=== PATIENT | female | born 1955 | race Caucasian/White ===

== ENCOUNTER 2017-06-20 17:51 | Emergency (ER) ==
[2017-06-20 17:57] VITALS: BP 124/66; BMI 27.8
--- NOTE | 2017-06-20 18:13 | ED.PDOC ---
General <ARABELLA FLANNERY - Last Filed: 06/20/17 19:32> Stated Complaint: LOWER ABDOMINAL PAIN Time Seen by Physician: 18:00 (SEEN WITH PRASANNA AND AT ALL TIMES ) Mode of Arrival: Walk-In Information Source: Patient, Family Exam Limitations: No limitations Nursing and Triage Documentation Reviewed and Agree: Yes Reviewed sepsis parameters & appropriate labs ordered?: Yes System Inflammatory Response Syndrome: Not Applicable System Inflammatory Response Syndrome: Not Applicable <LUIS ALFREDO MCGRAHT - Last Filed: 06/22/17 18:06> ED Provider: Dr. LUIS ALFREDO MCGRATH Chief Complaint: Abdominal Pain Primary Care Provider: PAYAL GTZ Sepsis Protocol: For patient's 13 years and over: Temp is 96.8 and below OR 101 and greater Pulse >90 BPM Resp >20/minute Acutely Altered Mental Status Are patient's symptoms suggestive of a new infection, such as: -Pneumonia -Skin, Soft Tissue -Endocarditis -UTI -Bone, Joint Infection -Implantable Device -Acute Abdominal Infection -Wound Infection -Meningitis -Blood Stream Catheter Infection -Unknown GI Complaint Exam - Abdominal Pain Complaint/Exam Onset: Gradual Duration: 2 DAYS Symptoms Are: Still present Timing: Constant Initial Severity: Moderate Current Severity: Moderate Location of Pain: RLQ, LLQ, Suprapubic Character: Reports: Aching Aggravating: Reports: None (1 BOWEL MOVEMNET WAS SOLID AND HAD SOME MINIMAL BLOOD HISTORY OF HEMORROIDS REPORTED BY PT) Alleviating: Reports: None Associated Signs and Symptoms: Reports: Decreased appetite. Denies: Diaphoresis , Fever, Cough, Chest pain, Dizziness, Back pain, Constipation, Blood in stool, Dysuria, Urinary frequency, Decreased urine output, Vaginal bleeding, Vaginal discharge, Nausea, Vomiting, Diarrhea, Sore throat, Decreased activity AAA Risk Factors: Reports: None Cardiac Risk Factors: Reports: None Ectopic Risk Factors: Reports: None Ovarian Torsion Risk Factors: Reports: None Surgical Obstruction Risk Factors: Reports: None Related Surgical History: Reports: None Patient Rh Status: Unknown Abdominal Findings: Present: None Differential Diagnoses: Appendicitis, Bowel Obstruction, Diverticulitis Quality Indicators for AMI: EKG in 10min. Quality Indicators for Cardiac Chest Pain: EKG in 10min. <LUIS ALFREDO MCGRATH - Last Filed: 06/22/17 18:06> Review of Systems - Review Of Systems Constitutional: Reports: Malaise, Loss of appetite Eyes: Reports: No symptoms Ears, Nose, Mouth, Throat: Reports: No symptoms Respiratory: Reports: Cough Cardiac: Reports: No symptoms GI: Reports: Abdominal pain : Reports: No symptoms Musculoskeletal: Reports: No symptoms Skin: Reports: No symptoms Neurological: Reports: No symptoms Endocrine: Reports: No symptoms Hematologic/Lymphatic: Reports: No symptoms All Other Systems: Reviewed and Negative <LUIS ALFREDO MCGRATH Last Filed: 06/22/17 18:06> Past Medical History - Past Medical History Previously Healthy: Yes Endocrine: Reports: None Cardiovascular: Reports: None Respiratory: Reports: None Hematological: Reports: None Gastrointestinal: Reports: None Genitourinary: Reports: None Neuro/Psych: Reports: None Musculoskeletal: Reports: None Cancer: Reports: Breast Last Menstrual Period: n/a - Surgical History General Surgical History: Reports: None - Family History Family History: Reports: None - Social History Smoking Status: Never smoker Hx Substance Use: No Alcohol Screening: None <LUIS ALFREDO MCGRATH Last Filed: 06/22/17 18:06> Physical Exam - Physical Exam Appearance: Well-appearing, No pain distress, Well-nourished Eyes: MARILYN, EOMI, Conjunctiva clear ENT: Ears normal, Nose normal, Oropharynx normal Respiratory: Airway patent, Breath sounds clear, Breath sounds equal, Respirations nonlabored Cardiovascular: RRR, Pulses normal, No rub, No murmur GI/: Soft, Nontender, No masses, Bowel sounds normal, No Organomegaly Musculoskeletal: Normal strength, ROM intact, No edema, No calf tenderness Skin: Warm, Dry, Normal color Neurological: Sensation intact, Motor intact, Reflexes intact, Cranial nerves intact, Alert, Oriented Psychiatric: Affect appropriate, Mood appropriate <LUIS ALFREDO MCGRATH Last Filed: 06/22/17 18:06> Critical Care Note - Critical Care Note Total Time (mins): 0 <LUIS ALFREDO MCGRATH - Last Filed: 06/22/17 18:06> Course - Course Hematology/Chemistry: 06/20/17 18:15 06/20/17 18:15 <ARABELLA FLANNERY - Last Filed: 06/20/17 19:32> - Course Hematology/Chemistry: 06/20/17 18:15 06/20/17 18:15 <LUIS ALFREDO MCGRATH - Last Filed: 06/22/17 18:06> - Course Orders, Labs, Meds: Lab Review 06/20/17 06/20/17 06/20/17 18:15 18:15 18:15 WBC 15.22 H RBC 4.30 Hgb 12.9 Hct 36.9 L MCV 85.8 MCH 30.0 MCHC 35.0 RDW Coeff of Kristyn 12.3 Plt Count 220 Immature Gran % (Auto) 0.3 Neut % (Auto) 85.9 Lymph % (Auto) 7.1 L Mower % (Auto) 6.0 Eos % (Auto) 0.5 Baso % (Auto) 0.2 Immature Gran # (Auto) 0.1 Neut # 13.1 H Lymph # 1.1 Mower # 0.9 Eos # 0.1 Baso # 0.0 Sodium 141 Potassium 3.3 L Chloride 106 Carbon Dioxide 27 Anion Gap 11.3 BUN 14 Creatinine 0.87 Estimated GFR (MDRD) 66.00 BUN/Creatinine Ratio 16.09 Glucose 102 Calcium 9.0 Total Bilirubin 0.6 AST 20 ALT 28 Alkaline Phosphatase 63 Total Creatine Kinase 43 Troponin I < 0.0100 Total Protein 7.0 Albumin 3.7 Globulin 3.3 Albumin/Globulin Ratio 1.12 Amylase 74 Urine Color Urine Clarity Urine pH Ur Specific Lesage Urine Protein Urine Glucose (UA) Urine Ketones Urine Blood Urine Nitrite Urine Bilirubin Urine Urobilinogen Ur Leukocyte Esterase Ur Squamous Epith Cells Urine Mucus Stl Occult Blood (IFOB) Stool Occult Blood #2 Stool Occult Blood #3 Influenza A (Rapid) Negative by naat Influenza B (Rapid) Negative by naat 06/20/17 06/20/17 18:15 18:22 WBC RBC Hgb Hct MCV MCH MCHC RDW Coeff of Kristyn Plt Count Immature Gran % (Auto) Neut % (Auto) Lymph % (Auto) Mower % (Auto) Eos % (Auto) Baso % (Auto) Immature Gran # (Auto) Neut # Lymph # Mower # Eos # Baso # Sodium Potassium Chloride Carbon Dioxide Anion Gap BUN Creatinine Estimated GFR (MDRD) BUN/Creatinine Ratio Glucose Calcium Total Bilirubin AST ALT Alkaline Phosphatase Total Creatine Kinase Troponin I Total Protein Albumin Globulin Albumin/Globulin Ratio Amylase Urine Color Yellow Urine Clarity Clear Urine pH 5.5 Ur Specific Lesage 1.015 Urine Protein 1+ Urine Glucose (UA) Negative Urine Ketones Negative Urine Blood Negative Urine Nitrite Negative Urine Bilirubin Negative Urine Urobilinogen 0.2 Ur Leukocyte Esterase Negative Ur Squamous Epith Cells 50-100 Urine Mucus 2+ Stl Occult Blood (IFOB) Positive Stool Occult Blood #2 No specimen received Stool Occult Blood #3 No specimen received Influenza A (Rapid) Influenza B (Rapid) Orders Category Date Time Status EKG-(ED ONLY) Stat CARDIO 06/20/17 18:06 Completed C-DIFF MONITORING (NURSING) BID CARE 06/20/17 18:11 Active TRANSFER TO OUTSIDE FACILITY .TO [facility] 06/20/17 19:33 Active ([place], [place]) WRITE TRANSFER/SBAR NOTE ONCE CARE 06/20/17 19:33 Completed DISCHARGE ASSESSMENT ONCE DISCHARGE 06/20/17 19:33 Completed WRITE DISCHARGE NOTE ONCE DISCHARGE 06/20/17 19:33 Completed AMYLASE Stat LAB 06/20/17 18:15 Completed CBC W/ AUTO DIFF Stat LAB 06/20/17 18:15 Completed COMPREHENSIVE METABOLIC PANEL Stat LAB 06/20/17 18:15 Completed CREATINE KINASE Stat LAB 06/20/17 18:15 Completed FLU A/B MOLECULAR Stat LAB 06/20/17 18:15 Completed OCCULT BLOOD, STOOL Stat LAB 06/20/17 18:15 Completed TROPONIN I Stat LAB 06/20/17 18:15 Completed URINALYSIS C & S IF INDICATED Stat LAB 06/20/17 18:22 Completed Levofloxacin/D5w [Levaquin] 100 ml MEDS 06/20/17 19:38 Discontinued IV .STK-MED Levofloxacin/D5w [Levaquin] 500 mg MEDS 06/20/17 19:31 Discontinued Premix 100 ml D5w 1 bag IV ONCE Morphine Sulfate [Morphine 2 mg/ml Syringe] MEDS 06/20/17 19:31 Discontinued 2 mg IVP ONCE STA Ondansetron HCl/Pf [Zofran 4 mg/2 ml] MEDS 06/20/17 19:35 Discontinued 4 mg IVP ONCE STA Sodium Chloride 0.9% [Sodium Chloride] 1,000 ml MEDS 06/20/17 19:30 Discontinued IV 100 mls/hr CHEST, 2 VIEWS PA & LAT Stat RADS 06/20/17 18:[address] ABDOMEN/PELVIS WO CONTRAST Stat RADS 06/20/17 18:06 Completed Medications Discontinued Medications Generic Name Dose Route Start Last Admin Trade Name Freq PRN Reason Stop Dose Admin Levofloxacin/Dextrose 500 mg/ 100 mls @ 100 mls/hr 06/20/17 19:31 06/20/17 19 :46 Dextrose IV 06/20/17 20:30 100 mls/hr ONCE STA Administration Sodium Chloride 1,000 mls @ 100 mls/hr 06/20/17 19:30 06/20/17 19:47 Sodium Chloride IV 06/21/17 05:29 100 mls/hr .Q10H STA Administration Morphine Sulfate 2 mg 06/20/17 19:31 06/20/17 19:46 Morphine 2 Mg/Ml Syringe IVP 06/20/17 19:32 2 mg ONCE STA Administration Ondansetron HCl 4 mg 06/20/17 19:35 06/20/17 19:47 Zofran 4 Mg/2 Ml IVP 06/20/17 19:36 4 mg ONCE STA Administration Vital Signs: Temp Pulse Resp BP Pulse Ox 06/20/17 19:45 102.2 F H 06/20/17 17:53 100.5 F H 93 H 20 124/66 99 Departure - Departure Time of Disposition: 19:32 Pt referred to PMD for follow-up: Yes IPMP verified?: No Disposition Discussed With: Patient, Family <ARABELLA FLANNERY - Last Filed: 06/20/17 19:32> - Departure Pt referred to PMD for follow-up: Yes IPMP verified?: No <LUIS ALFREDO MCGRATH - Last Filed: 06/22/17 18:06> - Departure Disposition: TSF SHORT-TRM HOSP Discharge Problem: Abdominal pain Abdominal pain Qualifiers: Abdominal location: left lower quadrant Qualified Code(s): R10.32 - Left lower quadrant pain Instructions: Diverticulitis (ED), Abdominal Pain (ED), Perforated Bowel (GEN) Condition: Good Additional Instructions: Please call your Family Physician as soon as possible to schedule a follow-up appointment. Allergies/Adverse Reactions: Allergies meperidine [From Demerol] Adverse Reaction (Verified 06/20/17 17:58) Penicillins Adverse Reaction (Verified 06/20/17 17:58) Sulfa (Sulfonamide Antibiotics) Adverse Reaction (Verified 06/20/17 17:58) TAPE Adverse Reaction (Uncoded 01/26/16 09:24) Home Medications: Ambulatory Orders Calcium Carbonate/Vitamin D3 [Calcium 600 + Vit D Tablet] 1 tab PO DAILY Glucosamine HCl 1,500 mg PO DAILY 01/26/16 Multivitamin [Multi-Vitamin Daily] 1 tab PO DAILY 01/26/16 Pantoprazole Sodium [Protonix] 40 mg PO DAILY 01/26/16 Cetirizine HCl [Zyrtec] 10 mg PO DAILY 06/20/17
--- NOTE | 2017-06-20 19:19 | DI ---
EXAM: PA and lateral views of the chest. HISTORY: Cough. Pain. FINDINGS: There is a right axillary node dissection. The bones are unremarkable. The cardiac silhou ette and pulmonary vasculature are within normal limits. The costophrenic angles are clear. There is minimal left basilar atelectasis and/or pneumonia. Impression: Minimal left basilar atelectasis and/or pneumonia.
--- NOTE | 2017-06-20 19:26 | CT ---
EXAM: CT ABDOMEN AND PELVIS HISTORY: Abdominal pain TECHNIQUE: CT abdomen and pelvis without intravenous contrast. Images were reconstructed using 3 mm section thickness. Reformations were prepared. COMPARISON: None FINDINGS: Diagnostic limitations exist without including contrast enhanced images. No focal hepatic or splenic lesion. Gallbladder absent. No acute pancreatic abnormality. Adrenal glands within normal limits. Kidneys and ureters are unremarkable. Mild atherosclerotic disease. Stomach is within normal limits. What appears to represent the appendix has no evidence of inflammati on. Redundant colon with moderate fecal retention. The rectum proper has grossly normal appearance. The more proximal rectosigmoid colon has moderate fecal retention and probably a few diverticula. Th ere are tiny areas of free air around this portion of the colon. The bowel gas pattern currently ind icates no raquel bowel obstruction. No well-defined abscess. Urinary bladder within normal limits. No uterus is identified. No ventral hernia. Bones reveal no acute abnormality. Lung bases are clear. IMPRESSION: Findings most consistent with perforated diverticulitis at the lower rectosigmoid level . Neoplasia or colitis within the differential. Follow-up evaluation of the colon is recommended. No abscess or bowel obstruction currently seen.
[2017-06-20] MEDS ORDERED: SODIUM CHLORIDE 1,000 ML IV STA (19:30)
[2017-06-20] MEDS ORDERED: MORPHINE 2 MG/ML SYRINGE IVP STA (19:31)
[2017-06-20] MEDS ORDERED: LEVAQUIN 500 MG in PREMIX 100 ML D5W 1 BAG IV STA (19:31)
[2017-06-20] MEDS ORDERED: ZOFRAN 4 MG/2 ML IVP STA (19:35)
[2017-06-20] MEDS ORDERED: LEVAQUIN 100 ML IV ONE (19:38)
[2017-06-20 19:46] VITALS: TEMP 102.2
== END 2017-06-20 20:12 | disposition short-term general hospital (02) ==
LOC: ED 17:51
DX: R10.32 Left lower quadrant pain (principal); K57.80 Diverticulitis of intestine, part unspecified, with perforation and abscess without bleeding; R05 Cough
CPT/HCPCS: 36415; 80053; 81001; 82150; 82272; 82550; 84484; 85025; 87502; 93005; 93010; 96361; 96365; 96375; 99285